=== PATIENT | female | born 2000 | race American Indian/Alaskan Native ===

== ENCOUNTER 2024-07-15 06:54 | Observation (INO) ==
--- NOTE | 2024-07-15 07:20 | Emergency Department Note ---
History of Present Illness General Chief complaint: Illness Stated complaint: TREMMERS FOR THREE DAYS AFTER TAKING MEDS Time Seen by Provider: 07/15/24 07:16 History of Present Illness This is a 24-year-old patient that presents to the emergency department via private vehicle with complaints of "tremors x 3 days after taking medicine". The patient notes they started a muscle relaxer cyclobenzaprine this past Tuesday evening. Patient took 2 tablets which was 10 mg and then about 2 to 4 hours later took another 2 tablets which was 10 mg. They then noted around 3 AM on Tuesday morning they began with "tremor/shake". Patient notes that when they hold the phone in the right hand during a phone call they notes a slight shakiness to the hand which is new. Patient does note history of underlying mental health issues but notes these are well-managed at the present time and does not feel that today's presentation are secondary to those issues. The patient denies any fevers, chills, nausea or vomiting but does note that when she takes Trulicity they sometimes will vomit but that is not new. No SI. No HI. Patient does note a dry mouth and does feel a bit irritable. No seizure. The patient is scheduled for a massage for their back this coming Tuesday and notes that the reason for the muscle relaxer is for the ongoing back pain which has been present since about age 13. No recent trauma or injury. In regard to location, patient notes that the pain is in the "entire spine" again which is not new. No seizure. Home Medications Medication Instructions Recorded Confirmed Type levothyroxine 50 mcg tablet 50 mcg PO QAM 07/08/21 07/15/24 History (Synthroid) lithium carbonate 450 mg 450 mg PO AMPM 06/14/23 07/15/24 History tablet,extended release lurasidone 80 mg tablet (Latuda) 80 mg PO DAILY 06/14/23 07/15/24 History multivitamin 1 tab PO DAILY 06/14/23 07/15/24 History prazosin 2 mg capsule 2 mg PO QPM 06/14/23 07/15/24 History Tums 2 tab PO DIRECTED PRN Acid 06/17/23 07/15/24 History Reflux Zioptan (PF) 1 drp OPL HS 06/17/23 07/15/24 History ofloxacin 0.3 % eye drops 5 drp otic (ear) 2XD 06/17/23 07/15/24 History melatonin 10 mg tablet 10 mg PO HS PRN Insomnia 07/01/23 07/15/24 History hydroxyzine HCl 50 mg tablet 50 mg PO 4XD 05/23/24 07/15/24 History lithium carbonate 300 mg 300 mg PO PM 05/23/24 07/15/24 History tablet,extended release (Lithobid) rosuvastatin 10 mg tablet 10 mg PO QAM 05/23/24 07/15/24 History bupropion HCl 150 mg 24 hr tablet, 150 mg PO DAILY 07/15/24 07/15/24 History extended release cariprazine 4.5 mg capsule 4.5 mg PO DAILY 07/15/24 07/15/24 History (Vraylar) dulaglutide 0.75 mg/0.5 mL 0.75 mg subcut WK 07/15/24 07/15/24 History subcutaneous pen injector (Trulicity) metformin 500 mg tablet,extended 500 mg PO BID 07/15/24 07/15/24 History release 24 hr Allergies Allergy/AdvReac Type Severity Reaction Status Date / Time neomycin Allergy Mild Rash Verified 10/11/23 14:51 Past Med/Surg History Problem List (Updated 07/15/24 @ 14:58 by Yann Mittal PA-C) Tremor (Acute) Bipolar depression Medication side effect (Acute) Recurrent otitis externa of both ears ADHD (attention deficit hyperactivity disorder) ADD (attention deficit disorder) Anxiety Diabetes Glaucoma Medical History Dysfunction of right eustachian tube Bipolar depression Surgical History [place] teeth removed History of tonsillectomy and adenoidectomy Family History Mother Hypertension Father Hypertension Social History Smoking Status: Never smoker Tobacco Type: Cigarettes and E-cigarettes / Vaping Hx Alcohol Use: Yes Alcohol Intake Frequency Comment: SOCIALLY Preferred Language: Ukrainian Feels Safe at Home: No Gender Identity: Female Review of Systems A total of 10 systems reviewed and were otherwise negative Physical Exam Vital Signs Vital Signs - 24 hr 07/15/24 06:54 07/15/24 09:06 07/15/24 11:58 Temperature 36.6 C Temperature Source Temporal Artery Scan Pulse Rate 89 75 Pulse Rate [Apical] 74 Respiratory Rate 18 18 Blood Pressure 152/97 H Blood Pressure [Right Arm] 127/78 Blood Pressure Mean 115 Blood Pressure Mean [Right Arm] 94 Pulse Oximetry 98 98 Oxygen Delivery Method Room Air Sepsis Recent Fever Within 48 Hours No Sepsis New/Unexplained Change in Mental Status N/A Sepsis Action Taken by Nursing No Action Required 07/15/24 11:58 07/15/24 13:57 Temperature Temperature Source Pulse Rate Pulse Rate [Apical] 67 Respiratory Rate 14 Blood Pressure Blood Pressure [Right Arm] 140/86 Blood Pressure Mean Blood Pressure Mean [Right Arm] 104 Pulse Oximetry 97 Oxygen Delivery Method Room Air Room Air Sepsis Recent Fever Within 48 Hours Sepsis New/Unexplained Change in Mental Status Sepsis Action Taken by Nursing VITAL SIGNS - Vital signs and nursing notes were reviewed. Stable and afebrile. GENERAL -24-year-old patient appearing their stated age who is in no acute distress. Communicates well with provider and answers questions appropriately. SKIN - Without rashes. No meningeal or petechial rash. Piercings noted without signs of secondary infection. HEAD - NC/AT. EYES - PERRL with EOMI bilaterally. Sclera anicteric. EARS - No deformities of external structures noted on gross examination bilaterally. External auditory canals without discharge or otorrhea. Tympanic membranes pearly soto without retraction or bulging. No fluid or purulent material visualized behind the TM. Handle of malleus, umbo, cone of light, pars tensa/flaccid all easily visualized. NOSE - Midline and without cyanosis. No epistaxis or purulent drainage noted. Septum midline without deviation or septal hematoma noted. MOUTH/OROPHARYNX - Without perioral cyanosis. Buccal mucosa pink and moist and without leukoplakia. Tongue midline with equal elevation of palate bilaterally. No tonsillar hypertrophy, erythema, or exudates noted. Good dentition noted. NECK - Neck with FROM. Supple to palpation. No lymphadenopathy noted. No nuchal rigidity. LUNGS - Chest wall symmetric without accessory muscle use, intercostals retractions, or central cyanosis. Normal vesicular breath sounds CTA B/L. No wheezes, rales, or rhonchi appreciated. CARDIAC - RRR ABDOMEN - Abdominal contour normal without pulsations or visible masses. BS normoactive all four quadrants. No tenderness, palpable masses, hepatosplenomegaly, or ascites noted. EXTREMITIES - No clubbing or peripheral cyanosis. +5/5 strength noted in UE/LE bilaterally. NEUROLOGIC - Cranial nerves II through XII grossly intact. Patellar reflexes +2/4. No tremor at the present time in the extremities. No shaking noted. PSYCH -alert, oriented and pleasant on examination. Medical Decision Making Laboratory Data 07/15/24 08:21 07/15/24 08:21 Lab Results 07/15/24 Range/Units 08:21 WBC 10.86 H (4.8-10.8) K/ul RBC 4.24 (4.20-5.40) M/uL Hgb 12.7 (12.0-16.0) g/dl Hct 38.6 (37.0-47.0) % MCV 91.0 (80.0-100.0) fL MCH 30.0 (25.0-34.0) pg MCHC 32.9 (32.0-36.0) g/dL RDW Std Deviation 45.1 (36.4-46.3) fL RDW Coeff of Sarah 13.6 (11.5-14.5) % Plt Count 300 (130-400) K/uL MPV 10.2 (9.4-12.4) fL Immature Gran % (Auto) 0.3 % Neut % (Auto) 66.7 % Lymph % (Auto) 26.2 % [place] % (Auto) 5.1 % Eos % (Auto) 1.4 % Baso % (Auto) 0.3 % Neut # (Auto) 7.26 H (1.40-6.50) K/uL Lymph # (Auto) 2.84 (1.20-3.40) K/uL [place] # (Auto) 0.55 (0.11-0.59) K/uL Eos # (Auto) 0.15 (0.00-0.50) K/uL Baso # (Auto) 0.03 (0.00-0.20) K/uL Immature Gran # (Auto) 0.03 (0.01-0.20) K/uL Sodium 141 (136-145) mmol/L Potassium 3.7 (3.5-5.1) mmol/L Chloride 111 H (98-107) mmol/L Carbon Dioxide 23 (21-32) mmol/L Anion Gap 7 (3-11) BUN 9 (6-23) mg/dl Creatinine 0.81 (0.6-1.2) mg/dl Est Cr Clr Drug Dosing 143.4 ml/min Est GFR ( Amer) 116.2 ml/min Est GFR (Non-Af Amer) 100.2 ml/min BUN/Creatinine Ratio 11.1 (10-20) Glucose 134 H (70-99(Fasting)) mg/dl Calcium 9.2 (8.6-10.3) mg/dl Magnesium 2.0 (1.7-2.4) mg/dl Total Bilirubin 0.4 (0.2-1.0) mg/dl AST 29 (13-39) U/L ALT 20 (7-52) U/L Alkaline Phosphatase 81 (34-104) U/L Total Protein 6.9 (6.0-8.3) gm/dl Albumin 4.4 (3.4-5.0) gm/dl Globulin 2.5 (2.5-4.0) gm/dl Albumin/Globulin Ratio 1.8 (0.9-2) TSH 1.694 (0.300-4.500) uIu/ml HCG, Qual Negative (Negative) [place] 0.4 L (0.6-1.2) mmol/L MDM Narrative Patient was seen and evaluated as above in room B02. Review was performed of triage nursing notes and vital signs. I did review pertinent previous visits and patient history. After obtaining a thorough history and physical examination the above work up was performed. Patient presents to us today for assessment of shaking/tremor in the setting of recent initiation of cyclobenzaprine for their back pain. On assessment the patient is clinically well-appearing and nontoxic. Vital signs stable. Mild hypertension 152/97. As I walked into the examination room patient was undergoing IV placement but notes that they did not want an IV placed and asked the nursing staff to stop. They did stop and the areas were dressed. Patient is amenable to blood draw but not IV placement. Options of care were discussed with the patient. Labs were drawn. Patient will orally rehydrate here. Clinical pharmacology drug interaction food checkers and cashiers supervisor service was utilized. Patient is on SNRIs and this combination with cyclobenzaprine may increase serotonin concentrations with possibility of serotonin syndrome. However, the patient does not have any of the classic serotonin syndrome findings. Laboratory studies here reveal mild leukocytosis 10.86. No emergent metabolic disturbance. Mild elevation of chloride at 111. Mild hyperglycemia 134. hCG negative. [place] 0.4. EKG was performed and reveals normal sinus rhythm at a rate of 70 bpm. QTc 429. QRS 100. No ST elevation. Patient was reevaluated several times and continued to be doing well. Clinically stable. Considered discharge for outpatient management however correctional case records supervisor did inquire as reportedly in triage there was comment that may not feel safe at home. I discussed this with the patient. Patient noted that she did not want to return to her current residence, and did sign a new lease for a new dwelling in the next few days. However, the patient did call their mother while here and the patient does prefer inpatient management which I believe is reasonable to observe/trend there current symptoms. This may represent medication side effect however certainly may trend patient condition while here. Case discussed with the hospitalist service. Please refer to further documentation regarding their stay. GCS: 15 In the evaluation and treatment of this patient the following differential diagnoses were entertained: Serotonin syndrome, adverse reaction, electrolyte disturbance, neurologic abnormality, psychiatric illness, among others Impression & Plan Medication side effect, Tremor Discharge Plan Visit Data Chief Complaint: Illness Stated Complaint: TREMMERS FOR THREE DAYS AFTER TAKING MEDS ED Provider: Mercedes Pedro ED Midlevel Provider: Yann Mittal Discharge Problem: Medication side effect, Tremor Patient Disposition: Admitted As Inpatient Condition: Good Forms Stand Alone Forms: My [facility] Prescriptions Prescriptions: No Action melatonin 10 mg tablet 10 mg PO HS PRN (Reason: Insomnia) lithium carbonate 450 mg tablet extended release 450 mg PO AMPM lurasidone [Latuda] 80 mg tablet 80 mg PO DAILY Rx Instructions: must administer with food (at least 350 calories) prazosin 2 mg capsule 2 mg PO QPM multivitamin Tablet 1 tab PO DAILY levothyroxine [Synthroid] 50 mcg tablet 50 mcg PO QAM Zioptan (PF) 1 drp OPL HS Tums 750 mg tablet 2 tab PO DIRECTED MDD 7500 mg PRN (Reason: Acid Reflux) ofloxacin 0.3 % Drops 5 drp otic (ear) 2XD lithium carbonate [Lithobid] 300 mg tablet extended release 300 mg PO PM hydroxyzine HCl 50 mg tablet 50 mg PO 4XD rosuvastatin 10 mg tablet 10 mg PO QAM metformin 500 mg tablet extended release 24 hr 500 mg PO BID bupropion HCl 150 mg tablet extended release 24 hr 150 mg PO DAILY Trulicity 0.75 mg/0.5 mL pen injector 0.75 mg SUBCUT WK Vraylar 4.5 mg capsule 4.5 mg PO DAILY Referrals Referrals: Venita Andre DO [Primary Care Provider] -
[2024-07-15 08:56] LABS: Basophils # (auto) 0.03 K/uL (0.00-0.20); Basophils % (auto) 0.3 %; Eosinophils # (auto) 0.15 K/uL (0.00-0.50); Eosinophils % (auto) 1.4 %; Hematocrit (blood only) 38.6 % (37.0-47.0); Hemoglobin 12.7 g/dl (12.0-16.0); Immature Granulocytes # (auto) 0.03 K/uL (0.01-0.20); Immature Granulocytes % (auto) 0.3 %; Lymphocytes # (auto) 2.84 K/uL (1.20-3.40); Lymphocytes % (auto) 26.2 %; Mean Corpuscular Hgb Conc 32.9 g/dL (32.0-36.0); Mean Platelet Volume 10.2 fL (9.4-12.4); Monocytes # (auto) 0.55 K/uL (0.11-0.59); Monocytes % (auto) 5.1 %; Neutrophils # (auto) 7.26 K/uL (1.40-6.50); Neutrophils % (auto) 66.7 %; Platelet Count 300 K/uL (130-400); RDW Coefficient of Variation 13.6 % (11.5-14.5); RDW Standard Deviation 45.1 fL (36.4-46.3); Red Blood Count 4.24 M/uL (4.20-5.40); White Blood Count 10.86 K/ul (4.8-10.8)
[2024-07-15 09:11] LABS: Pregnancy Test, Serum Negative (Negative)
[2024-07-15 09:16] LABS: Albumin Globulin Ratio 1.8 (0.9-2); Albumin Level 4.4 gm/dl (3.4-5.0); BUN Creatinine Ratio 11.1 (10-20); Bilirubin,Total 0.4 mg/dl (0.2-1.0); Calcium 9.2 mg/dl (8.6-10.3); Creatinine Clr Calc Pharmacy 143.4 ml/min; Est GFR (African American) 116.2 ml/min; Est GFR (Non-African American) 100.2 ml/min; Globulin 2.5 gm/dl (2.5-4.0); Potassium 3.7 mmol/L (3.5-5.1); Total Protein 6.9 gm/dl (6.0-8.3)
[2024-07-15 09:31] LABS: Thyroid Stimulating Hormone 1.694 uIu/ml (0.300-4.500)
--- NOTE | 2024-07-15 11:23 | History & Physical Report ---
Date of Service July 15, 2024 Assessment & Plan (1) Medication side effect: Plan: Patient recently started taking cyclobenzaprine on Friday 07/13 for muscle DC, and then developed tremors, disorientation, facial flushing, and muscle rigidity She also reports that she went for a drive, and does not remember driving No rigidity, pupillary dilation, hyperreflexia, or ocular clonus on arrival Mild leukocytosis at 10.86; afebrile Suspect this is a mild side effect to new medications, in the setting of medications for bipolar depression However, patient reports she does not feel safe to return home in her current state of disorientation Will continue to monitor for serotonin syndrome Benzodiazepines (Valium 5 mg IV) as first-line if she develops hyperthermia, clonus, or muscle rigidity A.m. CBC, BMP (2) Diabetes: Plan: No A1c on file Glucose 134 on admission Hold metformin, Trulicity SSI with target BSG range 110-140mg/dL, CF 40, carb ratio 15 T2DM diet BSG ACHS Adjust regimen as needed AM A1c (3) Bipolar depression: Plan: [place] level mildly low at 0.4 on arrival Continue lithium, lamotrigine, lurasidone, and prazosin (4) Anxiety: (5) ADHD (attention deficit hyperactivity disorder): Plan Disposition: Obs - Admit to Medr telemetry Full code T2DM diet VTE PPx: SCDs History of Present Illness Chief Complaint: Medication side effect Primary Care Provider: Venita Andre DO Viv is a 24-year-old female with PMH of glaucoma, diabetes, anxiety, and ADHD. She presented on 07/15 for tremors, agitation, and disorientation, which she believes are secondary to starting a new medication (cyclobenzaprine). Patient reports that she was prescribed cyclobenzaprine on Tuesday, and has been taking it twice daily over the weekend. She is taking it for muscle spasms. Patient reports that she developed chills, body tremors, fatigue, and agitation over the weekend. She reports that she felt like she was "crazy", but not in a "mental health way". She does feel disoriented, but denies suicidal ideations, and is unsure why she is feeling like this. Patient did not take her regular morning medications today. Her only new medication is cyclobenzaprine. No sick contacts. No fevers at home. Patient denies smoking or tobacco use. She does endorse alcohol use last night on 07/14; drank white claw and a "buzz ball". Patient denies any recent falls or injuries to the head or neck. No history of seizures. When asked about code status, patient reports that she does not care about an advanced directive, because she already knows she is going to and that her "life expectancy with chronic illnesses is lower than normal". She is okay if we reach out to her mom, who she would want to be her medical decision- maker in an emergency situation. Patient is hypertensive at 152/97 at time admission; vitals otherwise stable. ED course: ROS: Patient endorses chills, body tremors, facial flushing, dry mouth, fatigue, agitation, muscle rigidity, lightheadedness (attributes to her sugar being low), SOB (which patient attributes to anxiety), abdominal pain/nausea/vomiting (which patient attributes to Trulicity), and numbness/tingling in the arms and legs (chronic; patient reports they fall asleep a lot). Patient denies fever, night-sweats, TRUJILLO, chest pain, chest palpitations, cough, changes in urinary/bowel habits, and burning with urination. Spoke to patient's mother and father at the bedside and provided update regarding tests/imaging/admission status. Confirmed that the patient's CODE STATUS is full code. Patient's mother is a physician, and reports she understands the situation. She also mentioned that her daughter had an episode earlier that was unlike prior episodes of kirill where she endorsed a sense of "impending doom". The patient is not amenable to seeing a psychiatry liaison while in the hospital. Allergies Allergy/AdvReac Type Severity Reaction Status Date / Time neomycin Allergy Mild Rash Verified 10/11/23 14:51 Home Medications Medication Instructions Recorded Confirmed Type levothyroxine 50 mcg tablet 50 mcg PO QAM 07/08/21 07/15/24 History (Synthroid) lithium carbonate 450 mg 450 mg PO AMPM 06/14/23 07/15/24 History tablet,extended release lurasidone 80 mg tablet (Latuda) 80 mg PO DAILY 06/14/23 07/15/24 History multivitamin 1 tab PO DAILY 06/14/23 07/15/24 History prazosin 2 mg capsule 2 mg PO QPM 06/14/23 07/15/24 History Tums 2 tab PO DIRECTED PRN Acid 06/17/23 07/15/24 History Reflux Zioptan (PF) 1 drp OPL HS 06/17/23 07/15/24 History ofloxacin 0.3 % eye drops 5 drp otic (ear) 2XD 06/17/23 07/15/24 History melatonin 10 mg tablet 10 mg PO HS PRN Insomnia 07/01/23 07/15/24 History hydroxyzine HCl 50 mg tablet 50 mg PO 4XD 05/23/24 07/15/24 History lithium carbonate 300 mg 300 mg PO PM 05/23/24 07/15/24 History tablet,extended release (Lithobid) rosuvastatin 10 mg tablet 10 mg PO QAM 05/23/24 07/15/24 History bupropion HCl 150 mg 24 hr tablet, 150 mg PO DAILY 07/15/24 07/15/24 History extended release cariprazine 4.5 mg capsule 4.5 mg PO DAILY 07/15/24 07/15/24 History (Vraylar) dulaglutide 0.75 mg/0.5 mL 0.75 mg subcut WK 07/15/24 07/15/24 History subcutaneous pen injector (Trulicity) metformin 500 mg tablet,extended 500 mg PO BID 07/15/24 07/15/24 History release 24 hr Past Med/Surg History Problem List (Updated 07/15/24 @ 12:06 by Sharif Ramirez PA-C) Bipolar depression Medication side effect Recurrent otitis externa of both ears ADHD (attention deficit hyperactivity disorder) ADD (attention deficit disorder) Anxiety Diabetes Glaucoma Medical History Dysfunction of right eustachian tube Bipolar depression Surgical History [place] teeth removed History of tonsillectomy and adenoidectomy Family History Mother Hypertension Father Hypertension Social History Smoking Status: Never smoker Tobacco Type: Cigarettes and E-cigarettes / Vaping Hx Alcohol Use: Yes Alcohol Intake Frequency Comment: SOCIALLY Preferred Language: Peruvian Feels Safe at Home: No Gender Identity: Female Review of Systems Review of Systems: See HPI above Physical Exam Physical Exam: General: Patient is sitting up texting on her laptop, and is not no acute distress; lethargic; non-toxic appearing; SpO2 98% on RA HEENT: normocephalic, atraumatic; no scleral icterus; PERRLA w/ EOMs intact; negative ocular clonus; vision and hearing grossly intact Neck: supple; no lymphadenopathy; trachea midline Skin: warm, dry without signs of tenting; no cyanosis; no rashes, bruising, lesions, or erythema noted CV: chest wall NTP; RRR; S1/S2 normal; no murmurs/rubs/gallops; pulses intact and symmetric at radial, DP, and PT Lungs: no acute respiratory distress; symmetrical chest wall expansion; clear breath sounds across all lung [place] w/o adventitious sounds; no wheezing ABD: Soft, NTP; BS present; no rebound/guarding MSK: no tics or fasciculations; mild muscle rigidity; no edema noted in the LEs b/l, nonerythematous; negative ankle clonus, assessed bilaterally; patient is not hyperreflexive; patient demonstrates ability to wiggle toes bilaterally Neuro: A&Ox3; some disorientation; normal mood and affect; fluent speech; no focal deficits; patient reports that sensation is intact and symmetric in the lower extremities bilaterally Results & Data Results & Data Vital Signs (Past 12 Hours) Vital Signs Temp Pulse Resp BP Pulse Ox 07/15/24 09:06 75 07/15/24 06:54 36.6 C 89 18 152/97 H 98 Laboratory Results Abnormal lab results 07/15/24 Range/Units 08:21 WBC 10.86 H (4.8-10.8) K/ul Neut # (Auto) 7.26 H (1.40-6.50) K/uL Chloride 111 H (98-107) mmol/L Glucose 134 H (70-99(Fasting)) mg/dl [place] 0.4 L (0.6-1.2) mmol/L ECG Additional Comments: ECG revealed NSR at 73 bpm; QTc 429 Code Status & VTE Plan Code Status Full code (confirmed with patient's mother at bedside) VTE Prophylaxis Plan VTE Prophylaxis will be ordered: Yes Supervising Physician Co-Signing Physician Notes Patient seen and examined, chart reviewed, case discussed with Sharif Ramirez PA-C and I agree with the assessment and plan as above except as otherwise noted Labs and images reviewed 24-year-old female with a history of ADHD, bipolary, diabetes, on multiple psych medications including lithium/trazodone/Vraylar/lurasidone who was recently prescribed cyclobenzaprine for muscle spasms and taken BID after which she felt she became rigid tremulous and was concerned for serotonin syndrome. At admitting assessment she is not febrile, she is not confused, she does not have rigidity, inducible clonus/ankle clonus, hyperreflexia, or ocular clonus. She does not be criteria for serotonin syndrome. Return home and conservative care for suspected side effect of cyclobenzaprine was offered, patient is not comf ortable with this due to her multiple medications and feeling poorly. She does feel that her mood is actually well-controlled with her current medications and does not have any acute exacerbation of bipolar/depression. Will observe overnight. If she develops any clinical criteria for serotonin syndrome then can treat with Valium 5 mg x 1, and consider cyproheptadine at that point. These were deferred on admission. No SI. Agree with above. PG Care Time/CCT Total # of Minutes Spent Total Time Spent with Patient: Total time spent is greater than 50% in coordination of care (as documented) at patient's floor/unit and/or counseling patient: [place] [address] INT INP/OBS CARE 2/55MIN Patient Type New History Comprehensive Exam Comprehensive Medical Decision Making Moderate Complexity Diagnoses Medication side effect T88.7XXA Diabetes E11.9 Bipolar depression F31.9 Anxiety F41.9 ADHD (attention deficit hyperactivity disorder) F90.9
[2024-07-15] MEDS ORDERED: GLUCOSE 40% GEL 15 GM TUBE PO PRN (15:03)
[2024-07-15] MEDS ORDERED: ONDANSETRON INJ 2 MG/ML 2 ML VIAL IV PRN (15:03)
[2024-07-15] MEDS ORDERED: DEXTROSE 50% 50 ML SYRINGE IV PRN (15:03)
[2024-07-15] MEDS ORDERED: GLUCAGON FOR INJ 1 MG VIAL SQ PRN (15:03)
[2024-07-15] MEDS ORDERED: ACETAMINOPHEN 325 MG TAB PO PRN (15:03)
[2024-07-15] MEDS ORDERED: CARBOHYDRATES FOR HYPOGLYCEMIA PO PRN (15:03)
[2024-07-15] MEDS ORDERED: GLUCOSE 10 TAB/TUBE PO PRN (15:03)
[2024-07-15] MEDS ORDERED: MELATONIN 3 MG TAB PO PRN (15:10)
[2024-07-15] MEDS ORDERED: CALCIUM CARBONATE 500 MG CHEWABLE TAB PO PRN (15:12)
[2024-07-15] MEDS: OFLOXACIN 0.3% 75 DROPS/5 ML BTL OT SCH (15:31)
[2024-07-15] MEDS: LITHIUM CARBONATE 450 MG TABCR PO SCH (17:23)
[2024-07-15] MEDS: hydrOXYzine HCl 25 MG TAB PO SCH (17:24)
[2024-07-15] MEDS: INSULIN ASPART PER UNIT CHARGE SC SCH (17:24)
[2024-07-15] MEDS: PRAZOSIN HCL 1 MG CAP PO SCH (20:11)
[2024-07-15] MEDS: LITHIUM CARBONATE SLOW REL 300 MG TAB PO SCH (21:09)
[2024-07-15] MEDS ORDERED: DICLOFENAC SOD 1% GEL 100 GM TUBE EXT PRN (22:20)
[2024-07-16] MEDS: LEVOTHYROXINE SODIUM 50 MCG TABLET PO SCH (06:02)
[2024-07-16 07:09] VITALS: BP 135/92; RESP 15; TEMP 99; O2SAT 99
[2024-07-16 07:29] LABS: Basophils # (auto) 0.03 K/uL (0.00-0.20); Basophils % (auto) 0.3 %; Eosinophils # (auto) 0.22 K/uL (0.00-0.50); Eosinophils % (auto) 2.2 %; Hematocrit (blood only) 41.7 % (37.0-47.0); Hemoglobin 13.7 g/dl (12.0-16.0); Immature Granulocytes # (auto) 0.02 K/uL (0.01-0.20); Immature Granulocytes % (auto) 0.2 %; Lymphocytes # (auto) 3.73 K/uL (1.20-3.40); Lymphocytes % (auto) 37.5 %; Mean Corpuscular Hemoglobin 29.8 pg (25.0-34.0); Mean Corpuscular Hgb Conc 32.9 g/dL (32.0-36.0); Mean Corpuscular Volume 90.7 fL (80.0-100.0); Mean Platelet Volume 10.1 fL (9.4-12.4); Monocytes # (auto) 0.46 K/uL (0.11-0.59); Monocytes % (auto) 4.6 %; Neutrophils # (auto) 5.49 K/uL (1.40-6.50); Neutrophils % (auto) 55.2 %; Platelet Count 323 K/uL (130-400); RDW Coefficient of Variation 13.5 % (11.5-14.5); White Blood Count 9.95 K/ul (4.8-10.8)
[2024-07-16 07:46] LABS: BUN Creatinine Ratio 8.4 (10-20); Calcium 9.3 mg/dl (8.6-10.3); Creatinine Clr Calc Pharmacy 144.5 ml/min; Est GFR (African American) 112.8 ml/min; Est GFR (Non-African American) 97.3 ml/min; Magnesium 2.2 mg/dl (1.7-2.4); Potassium 3.5 mmol/L (3.5-5.1)
[2024-07-16] MEDS: CARIPRAZINE HCL 1.5 MG CAP PO SCH (08:37)
[2024-07-16] MEDS: LURASIDONE HCL 20 MG TAB PO SCH (08:38)
[2024-07-16] MEDS: ROSUVASTATIN CALCIUM 10 MG TAB PO SCH (08:39)
[2024-07-16] MEDS: buPROPion XL 150 MG TABCR PO SCH (08:40)
[2024-07-16 08:44] LABS: Estimated Average Glucose 126 mg/dl
[2024-07-16 11:48] VITALS: PULSE 67
--- NOTE | 2024-07-16 15:01 | Discharge Summary ---
Date of Service July 16, 2024 Admission HPI Per Admitting Provider Viv is a 24-year-old female with PMH of glaucoma, diabetes, anxiety, and ADHD. She presented on 07/15 for tremors, agitation, and disorientation, which she believes are secondary to starting a new medication (cyclobenzaprine). Patient reports that she was prescribed cyclobenzaprine on Tuesday, and has been taking it twice daily over the weekend. She is taking it for muscle spasms. Patient reports that she developed chills, body tremors, fatigue, and agitation over the weekend. She reports that she felt like she was "crazy", but not in a "mental health way". She does feel disoriented, but denies suicidal ideations, and is unsure why she is feeling like this. Patient did not take her regular morning medications today. Her only new medication is cyclobenzaprine. No sick contacts. No fevers at home. Patient denies smoking or tobacco use. She does endorse alcohol use last night on 07/14; drank white claw and a "buzz ball". Patient denies any recent falls or injuries to the head or neck. No history of seizures. When asked about code status, patient reports that she does not care about an advanced directive, because she already knows she is going to and that her "life expectancy with chronic illnesses is lower than normal". She is okay if we reach out to her mom, who she would want to be her medical decision- maker in an emergency situation. Patient is hypertensive at 152/97 at time admission; vitals otherwise stable. ED course: ROS: Patient endorses chills, body tremors, facial flushing, dry mouth, fatigue, agitation, muscle rigidity, lightheadedness (attributes to her sugar being low), SOB (which patient attributes to anxiety), abdominal pain/nausea/vomiting (which patient attributes to Trulicity), and numbness/tingling in the arms and legs (chronic; patient reports they fall asleep a lot). Patient denies fever, night-sweats, TRUJILLO, chest pain, chest palpitations, cough, changes in urinary/bowel habits, and burning with urination. Spoke to patient's mother and father at the bedside and provided update regarding tests/imaging/admission status. Confirmed that the patient's CODE STATUS is full code. Patient's mother is a physician, and reports she understands the situation. She also mentioned that her daughter had an episode earlier that was unlike prior episodes of kirill where she endorsed a sense of "impending doom". The patient is not amenable to seeing a psychiatry liaison while in the hospital. Admission Exam (Per Admitting) Constitutional The patient is awake, alert and oriented 3, well developed and well nourished, normocephalic and atraumatic, lying in bed and in no acute distress. HEENT--PERRL, EOMI, mucous membranes and oropharynx mildly dry Neck--supple. No JVD. No bruits. Thyroid normal, trachea midline, no adenopathy. Heart--normal S1 and S2. No murmurs, rubs or gallops. Lungs--clear bilaterally, no respiratory distress, no accessory muscle use. Abdomen--normal bowel sounds and soft. Extremities--no cyanosis or clubbing. No edema. Dermatologic--normal skin turgor, normal color, no abnormal lymph nodes, no rash. Neurologic--cranial nerves II through XII grossly intact. Rheumatologic--normal range of motion. Psychiatric--normal affect. Discharge Data Consultations 07/15/24 11:07 ED Decision to Admit Stat Hospital Course (1) Medication side effect: Patient recently started taking cyclobenzaprine on Friday 07/13 for muscle DC, and then developed tremors, disorientation, facial flushing, and muscle rigidity She also reports that she went for a drive, and does not remember driving No rigidity, pupillary dilation, hyperreflexia, or ocular clonus on arrival Mild leukocytosis at 10.86; afebrile Suspect this is a mild side effect to new medications, in the setting of medications for bipolar depression Now resolved Discharge home (2) Diabetes: No A1c on file Glucose 134 on admission Hold metformin, Trulicity SSI with target BSG range 110-140mg/dL, CF 40, carb ratio 15 T2DM diet BSG ACHS Adjust regimen as needed AM A1c (3) Bipolar depression: [place] level mildly low at 0.4 on arrival Continue lithium, lamotrigine, lurasidone, and prazosin Urged to follow up with her psychiatrist outpatient (4) Anxiety: (5) ADHD (attention deficit hyperactivity disorder): Plan Disposition: discharge home Full code T2DM diet VTE PPx: SCDs Coding Level of Care Code 80476 INP/OBS DISCH >30 MIN Diagnoses Medication side effect T88.7XXA Diabetes E11.9 Bipolar depression F31.9 Anxiety F41.9 ADHD (attention deficit hyperactivity disorder) F90.9 Time Spent (min) 35
--- NOTE | 2024-07-17 06:05 | Electrocardiogram Report ---
Test Reason : Blood Pressure : */* mmHG Vent. Rate : 73 BPM Atrial Rate : 73 BPM P-R Int : 152 ms QRS Dur : 100 ms QT Int : 390 ms P-R-T Axes : 56 19 54 degrees QTcB Int : 429 ms Normal sinus rhythm Normal ECG When compared with ECG of 03-Feb-2023 18:36, Nonspecific T wave abnormality now evident in Lateral leads Confirmed by Ronald Cordero ([id number]) on 07/17/2024 6:05:01 AM Referred By: REFERRED SELF Confirmed By: Ronald Cordero
== END 2024-07-16 12:25 | disposition home or self-care (01) ==
LOC: EDINP 06:54 → ED 06:54 → SUATTDRO 11:57 → 3W 16:06